=== PATIENT | male | born 1965 | race Caucasian/White ===

== ENCOUNTER 2017-06-27 08:04 | Day surgery (SDC) | payer OTHER, SELFPAY ==
[2017-06-22 15:23] VITALS: BMI 32.9
[2017-06-27] VITALS (11 sets, daily range): BP systolic 110–138; BP diastolic 72–94; PULSE 54–65; RESP 12–56; TEMP 36.6–37.1; O2SAT 94–100; BMI 33.1
--- NOTE | 2017-06-27 09:14 | P.PCN_ITS ---
- Procedure: Date: 06/27/17 Patient Date of :: 1965 Procedure Performed:: Colonoscopy with cold snare polypectomy Equipment: Olympus 180 variable stiffness pediatric colonoscope Indications:: Mr. Gordillo is a 51-year-old gentleman who is here for screening colonoscopy. He did have a colonoscopy in April 2008 at which time 2 polyps were removed. He does have some occasional spotting of blood from internal hemorrhoids. He reports no abdominal pain, weight loss, change in his bowel habits or family history of colon cancer. Performing Provider:: Darien Romero MD Referring Provider:: Edilson Santos M.D. Sedation:: Fentanyl 150 mg IV versed 7 mg IV Procedure:: Colonoscopy Procedure Report: Colonoscopy with cold snare polypectomy Findings:: Findings: On digital rectal examination there was normal rectal tone. There were no external hemorrhoids. The prostate was 2+, full and mildly firm but symmetric without nodules. The colonoscope was introduced through the anal canal to the rectum and advanced to the cecum. The ileocecal valve and appendiceal orifice were identified. The scope was advanced a short distance into the ileum which appeared grossly normal. The scope was then withdrawn into the colon. There were 2 diminutive polyps in the ascending colon that ranged in size from 5-7 mm and were both removed via cold snare polypectomy. The remaining cecum, ascending and transverse colon and mucosa were grossly normal. There were scattered diverticuli throughout the descending and sigmoid colon ( LEFT colon). The rectum itself was normal. Upon retroflexion within the rectum there were grade 1-2 internal hemorrhoids. Impression: 1. Colonic polyps ?2 2. Left-sided diverticulosis 3. Grade 1-2 hemorrhoids Recommendations:: Plan: I will follow up the polyp pathology and recommend repeat colonoscopy again in 5 years based upon the polyp histology. I would encourage fiber supplementation on a long-term daily maintenance basis. Complications:: None Estimated blood obtained (mL): 0
== END 2017-06-27 10:29 | disposition home or self-care (01) ==
LOC: OUTP 08:07
PROVIDERS: Family Provider Internal Medicine Adolescent Medicine; PCP Internal Medicine Adolescent Medicine; Visit Provider Internal Medicine Gastroenterology
PROC: 0DJD8ZZ Inspection of Lower Intestinal Tract, Via Natural or Artificial Opening Endoscopic (ICD-10-PCS; CPT 45378; principal; 2017-06-27 09:00)
DX: Z12.11 Encounter for screening for malignant neoplasm of colon (principal); Z86.010 Personal history of colon polyps; D12.2 Benign neoplasm of ascending colon; K57.30 Diverticulosis of large intestine without perforation or abscess without bleeding; K64.0 First degree hemorrhoids
CPT/HCPCS: 45380; 99152